=== PATIENT | male | born 1950 | race Caucasian/White ===

== ENCOUNTER → 2016-10-14 | Outpatient (CLI) | payer MEDICARE, MEDICAID ==
[~2016-10-14] MED LIST: ADV250INH INH; ALBU17IN INH; ALBU83IN INH; AMLO5TAB2 PO; ATOR40TA PO; CALC1TAB26 PO; FENO160T10 PO; GASTROGRAFIN SOLUTION 30ML (Q9963) As Ordered ONE; GLYB5TA PO; ISOVUE-370 76% 100ML VIAL (Q9967) As Ordered ONE; LORA10TA2 PO; LOSA100T36 PO; METO25TAB PO; NEXI40CA PO; OXYB5TA PO; POTA10CA PO; RANI150T PO; SODI325T9 PO; TRAD5TAB PO; VITMTA PO; ZETI10TA2 PO
--- NOTE | 2016-10-14 15:23 | REP ---
CT ABDOMEN AND PELVIS, 10/14/2016: Initially study performed of CT abdomen without contrast. Followed by CT abdomen and pelvis with IV and oral contrast and 2 minute delayed imaging of the abdomen. COMPARISON: CT abdomen and pelvis 02/17/2011 without contrast. TECHNIQUE: After drinking two cups of water each containing 10 mL Gastrografin in 290 mL water, 100 mL Isovue-370 mg/mL was given intravenously. Portal venous phase images were obtained of the abdomen and pelvis. Subsequently, two minute delayed images were obtained of abdomen. HISTORY: Hypocalcemia. Weight loss. FINDINGS: There is minimal fibroatelectatic changes in the left lung base. Visualized portions of the heart within normal limits. There is a 3.3 cm hiatal hernia with mildly thickened wall. There is mild diffuse fatty infiltration of liver. The spleen, pancreas are normal. There has been a prior cholecystectomy. Adrenal glands are normal. Kidneys are without hydronephrosis or obstructing ureteral calculi bilaterally. There are small bilateral renal cortical cysts. The right kidney is 9.9 cm in maximal length and the left kidney is 10.8 cm in length. The stomach is normal. Small bowel is without obstruction. The terminal ileum and appendix are normal. Abdominal aorta is of normal course and caliber. There are no pathologically enlarged retroperitoneal nodes. There is moderate bladder distention. Prostate is mildly enlarged with mild extrinsic impression upon inferior bladder. The colon is underdistended. There is no free air or ascites. IMPRESSION: 3.3 cm hiatal hernia. Mild diffuse fatty infiltration of liver. Bilateral renal cortical cysts. No hydronephrosis bilaterally. Moderate bladder distention. There is mild prostatic hypertrophy with mild extrinsic impression upon inferior bladder. Underdistended left colon. No free air or ascites. Unreviewed
--- NOTE | 2016-10-14 16:07 | REP ---
CT CHEST WITH CONTRAST, 10/14/2016 INDICATION: Weight loss and hypercalcemia, chronic kidney disease stage 3. COMPARISON: PA and lateral chest 08/25/2016. FINDINGS: The thoracic aorta is without aneurysm or dissection. There are moderate coronary artery calcifications within the left anterior descending coronary artery. The heart is of normal size. There are no pathologically enlarged mediastinal of hilar lymph nodes. Minimal dependant atelectasis versus scarring present in the lung bases bilaterally. There are no alveolar infiltrates or pleural effusions. 5.5 x 2 mm nodular density in the periphery of the right middle lobe is identified and is contiguous with the minor fissure. There is a 3.3 cm retrocardiac hiatal hernia. IMPRESSION: 1. No pathologically mediastinal or hilar adenopathy. 2. Moderate coronary artery calcifications and left anterior descending coronary artery. 3. 5.5 x 2 mm nodular opacity in the right middle lobe contiguous with the minor fissure likely scarring. Recommend followup CT chest in 3 months for reevaluation. MTDD
== END ==
LOC: M RAD 11:48
PROVIDERS: ATTEND Internal Medicine Nephrology
DX: N18.3 Chronic kidney disease, stage 3 (moderate) (principal); E83.52 Hypercalcemia; R63.4 Abnormal weight loss; K44.9 Diaphragmatic hernia without obstruction or gangrene; K76.0 Fatty (change of) liver, not elsewhere classified
CPT/HCPCS: 71260; 74177; Q9963; Q9967

== ENCOUNTER → 2017-04-06 | Outpatient (CLI) | payer MEDICARE, MEDICAID ==
[~2017-04-06] MED LIST changes: -ATOR40TA PO; +ATOR40TA75 PO; +DEXI60CA2 PO; -GASTROGRAFIN SOLUTION 30ML (Q9963) As Ordered ONE; -ISOVUE-370 76% 100ML VIAL (Q9967) As Ordered ONE; +METO25TA4 PO; -METO25TAB PO; -OXYB5TA PO; +OXYB5TAB10 PO; -ZETI10TA2 PO; +ZETI10TA30 PO
--- NOTE | 2017-04-06 21:53 | ECGEPIP ---
Stationary ECG Study [facility] Test Date: 2017-04-06 Pat Name: LILO CUNNINGHAM Department: Room: - Gender: M [employer]: Randy : 1950 Requested By: Gemma VALERIOP Order Number: [id number] Reading MD: Bryan Ballesteros Measurements Intervals [place] Rate: 73 P: 10 [place]: 144 QRS: -10 QRSD: 94 T: 10 QT: 381 QTc: 421 Interpretive Statements SINUS RHYTHM Within normal limits. Electronically Signed On 04-06-2017 21:52:52 EDT by Bryan Ballesteros
== END ==
LOC: M EKG 09:08
PROVIDERS: ATTEND Nurse Practitioner Family
DX: I10 Essential (primary) hypertension (principal); E11.9 Type 2 diabetes mellitus without complications

== ENCOUNTER 2017-06-08 12:33 | Day surgery (SDC) | payer MEDICARE, MEDICAID ==
[~2017-06-08] VITALS: Ht 160 cm; Wt 83.5 kg
[~2017-06-08 12:33] MED LIST changes: +ACETAMINOPHEN 325 MG TAB PO PRN; +BSS with VANC/TOB/EPI for EYE CASES IR ONE; +CYCLOPENTOLATE 2% OPHTH SOLN 2ML BTL XX ONE; +HEALON DUET (HEALON 10MG/ML 0.55ML & HEALON ENDOCOAT 30MG/ML 0.85ML) As Ordered ONE; +LIDOCAINE 1% SDV 5 ML VIAL As Ordered ONE; +LIDOCAINE 3.5 % 1ML OPHTH TOPICAL GEL OU ONE; +MOXIFLOXACIN IN BSS 0.25MG/0.25ML INTRACAMERAL INJ (OR EYE ONLY)(J2280) As Ordered ONE; +OFLOXACIN 0.3 % (OCUFLOX) OPTH SOL 5ML XX ONE; +PHENYLEPHRINE 2.5% OPHTH SOL 2ML XX ONE; +POVIDONE-IODINE 5% OPHTH PREP SOL 30ML As Ordered ONE; +PROPARACAINE 0.5% OPHTH SOL 15ML OS PRN; +TRIAMCINOLONE PRES FR 40 MG/ML 1ML(TRIESENCE)(OR EYE ONLY)(J3300 PER 1MG) As Ordered ONE; +TROPICAMIDE 1% OPHTH SOLN 2ML XX ONE
[2017-06-08] MEDS ORDERED: LR 1,000 ML IV ONE (12:45)
[2017-06-08] MEDS ORDERED: MIDAZOLAM INJ 2 MG/2 ML VIAL (J2250) As Ordered ONE (13:59)
[2017-06-08] MEDS ORDERED: fentaNYL 100 MCG/2 ML INJECTION (J3010) As Ordered ONE (13:59)
[2017-06-08] MEDS ORDERED: TRIMETHOBENZAMIDE 300 MG CAP PO PRN (14:45)
[2017-06-08] MEDS ORDERED: KETOROLAC 0.5% OPHTH SOLN OS ONE (14:45)
[2017-06-08] MEDS ORDERED: AcetaZOLAMIDE 500 MG ER CAP PO ONE (14:45)
[2017-06-08 15:00] VITALS: BP 155/72
== END 2017-06-08 15:11 | disposition home or self-care (01) ==
LOC: M SDC 12:33
PROVIDERS: ATTEND Ophthalmology
DX: H26.9 Unspecified cataract (principal); I10 Essential (primary) hypertension; E78.00 Pure hypercholesterolemia, unspecified; E07.9 Disorder of thyroid, unspecified; K44.9 Diaphragmatic hernia without obstruction or gangrene; K22.70 Barrett's esophagus without dysplasia; K21.9 Gastro-esophageal reflux disease without esophagitis; R29.898 Other symptoms and signs involving the musculoskeletal system; M15.0 Primary generalized (osteo)arthritis; E11.9 Type 2 diabetes mellitus without complications; M51.9 Unspecified thoracic, thoracolumbar and lumbosacral intervertebral disc disorder; R06.83 Snoring; N28.9 Disorder of kidney and ureter, unspecified; J45.909 Unspecified asthma, uncomplicated; F32.9 Major depressive disorder, single episode, unspecified; J44.9 Chronic obstructive pulmonary disease, unspecified; Z88.8 Allergy status to other drugs, medicaments and biological substances; Z79.899 Other long term (current) drug therapy; Z86.19 Personal history of other infectious and parasitic diseases
CPT/HCPCS: 66984; J2250; J2280; J3010; J3300; V2632

== ENCOUNTER 2017-11-07 12:12 | Emergency (ER) | payer MEDICARE, MEDICAID | END 2017-11-07 16:43 | disposition home or self-care (01) | LOC: M ED 12:12 | DX: J01.90 Acute sinusitis, unspecified (principal); B34.9 Viral infection, unspecified; J44.9 Chronic obstructive pulmonary disease, unspecified; I10 Essential (primary) hypertension; E78.5 Hyperlipidemia, unspecified; K22.70 Barrett's esophagus without dysplasia; Z79.899 Other long term (current) drug therapy; Z79.51 Long term (current) use of inhaled steroids; Z88.8 Allergy status to other drugs, medicaments and biological substances | CPT/HCPCS: 99283 ==

== ENCOUNTER → 2018-01-23 | Outpatient (CLI) | payer MEDICARE, MEDICAID | LOC: M EKG 10:54 | DX: Z01.812 Encounter for preprocedural laboratory examination (principal) | CPT/HCPCS: 93005 ==

== ENCOUNTER 2018-02-13 07:24 | Day surgery (SDC) | payer MEDICARE, MEDICAID ==
[2018-02-13] MEDS: MOXIFLOXACIN IN BSS 0.25MG/0.25ML INTRACAMERAL INJ (OR EYE ONLY)(J2280) As Ordered (06:57)
[~2018-02-13 07:24] MED LIST changes: +ACETAMINOPHEN 325 MG TAB PO; -ACETAMINOPHEN 325 MG TAB PO PRN; -ADV250INH INH; -ALBU17IN INH; -ALBU83IN INH; -AMLO5TAB2 PO; -ATOR40TA75 PO; -BSS with VANC/TOB/EPI for EYE CASES IR ONE; -CALC1TAB26 PO; -CYCLOPENTOLATE 2% OPHTH SOLN 2ML BTL XX ONE; -DEXI60CA2 PO; -FENO160T10 PO; -GLYB5TA PO; -HEALON DUET (HEALON 10MG/ML 0.55ML & HEALON ENDOCOAT 30MG/ML 0.85ML) As Ordered ONE; -LIDOCAINE 1% SDV 5 ML VIAL As Ordered ONE; -LIDOCAINE 3.5 % 1ML OPHTH TOPICAL GEL OU ONE; -LORA10TA2 PO; -LOSA100T36 PO; -METO25TA4 PO; -MOXIFLOXACIN IN BSS 0.25MG/0.25ML INTRACAMERAL INJ (OR EYE ONLY)(J2280) As Ordered ONE; -NEXI40CA PO; -OFLOXACIN 0.3 % (OCUFLOX) OPTH SOL 5ML XX ONE; -OXYB5TAB10 PO; -PHENYLEPHRINE 2.5% OPHTH SOL 2ML XX ONE; +PHENYLEPHRINE HCL 10 % OPHTH. SOL 5ML OD; -POTA10CA PO; -POVIDONE-IODINE 5% OPHTH PREP SOL 30ML As Ordered ONE; -PROPARACAINE 0.5% OPHTH SOL 15ML OS PRN; -RANI150T PO; -SODI325T9 PO; -TRAD5TAB PO; -TRIAMCINOLONE PRES FR 40 MG/ML 1ML(TRIESENCE)(OR EYE ONLY)(J3300 PER 1MG) As Ordered ONE; -TROPICAMIDE 1% OPHTH SOLN 2ML XX ONE; -VITMTA PO; -ZETI10TA30 PO
[2018-02-13] MEDS: TROPICAMIDE 1% OPHTH SOLN 2ML OD (07:59)
[2018-02-13] MEDS: OFLOXACIN 0.3 % (OCUFLOX) OPTH SOL 5ML OD (07:59)
[2018-02-13] MEDS: LIDOCAINE 3.5 % 1ML OPHTH TOPICAL GEL OU (07:59)
[2018-02-13] MEDS: PHENYLEPHRINE 2.5% OPHTH SOL 2ML OD (07:59)
[2018-02-13] MEDS: CYCLOPENTOLATE 2% OPHTH SOLN 2ML BTL OD (07:59)
[2018-02-13 08:01] LABS: BEDSIDE GLUCOSE 197 MG/DL (80-115)
[2018-02-13] MEDS ORDERED: MIDAZOLAM INJ 2 MG/2 ML VIAL (J2250) As Ordered (08:21)
[2018-02-13] MEDS ORDERED: fentaNYL 100 MCG/2 ML INJECTION (J3010) As Ordered (08:21)
[2018-02-13] MEDS: POVIDONE-IODINE 5% OPHTH PREP SOL 30ML As Ordered (08:30)
[2018-02-13] MEDS: LIDOCAINE 1% SDV 5 ML VIAL As Ordered (08:35)
[2018-02-13] MEDS: HEALON DUET (HEALON 10MG/ML 0.55ML & HEALON ENDOCOAT 30MG/ML 0.85ML) As Ordered (08:35)
[2018-02-13] MEDS: TRIAMCINOLONE PRES FR 40 MG/ML 1ML(TRIESENCE)(OR EYE ONLY)(J3300 PER 1MG) As Ordered (08:35)
[2018-02-13] MEDS: BSS with VANC/TOB/EPI for EYE CASES IR (08:35)
[2018-02-13] MEDS ORDERED: AcetaZOLAMIDE 500 MG ER CAP As Ordered (08:46)
[2018-02-13] MEDS: AcetaZOLAMIDE 500 MG ER CAP PO (08:54)
[2018-02-13] MEDS ORDERED: TRIMETHOBENZAMIDE 300 MG CAP PO (09:00)
== END 2018-02-13 09:25 | disposition home or self-care (01) ==
LOC: M SDC 07:24
DX: H25.9 Unspecified age-related cataract (principal); E11.9 Type 2 diabetes mellitus without complications; E78.4 Other hyperlipidemia; I10 Essential (primary) hypertension; E03.9 Hypothyroidism, unspecified; Z79.51 Long term (current) use of inhaled steroids; Z88.8 Allergy status to other drugs, medicaments and biological substances; J44.9 Chronic obstructive pulmonary disease, unspecified; F32.9 Major depressive disorder, single episode, unspecified; N18.3 Chronic kidney disease, stage 3 (moderate); Z87.891 Personal history of nicotine dependence; Z79.899 Other long term (current) drug therapy
CPT/HCPCS: 66984

== ENCOUNTER 2018-03-09 08:56 | Emergency (ER) | payer MEDICARE, OTHER, MEDICAID | END 2018-03-09 10:25 | disposition home or self-care (01) | LOC: M ED 08:56 | DX: S40.021A Contusion of right upper arm, initial encounter (principal); V09.9XXA Pedestrian injured in unspecified transport accident, initial encounter; Y92.410 Unspecified street and highway as the place of occurrence of the external cause; Y93.89 Activity, other specified; Y99.9 Unspecified external cause status; E11.9 Type 2 diabetes mellitus without complications; I10 Essential (primary) hypertension; E78.5 Hyperlipidemia, unspecified; J44.9 Chronic obstructive pulmonary disease, unspecified; M19.90 Unspecified osteoarthritis, unspecified site; M51.9 Unspecified thoracic, thoracolumbar and lumbosacral intervertebral disc disorder; K22.70 Barrett's esophagus without dysplasia; Z87.891 Personal history of nicotine dependence; Z79.899 Other long term (current) drug therapy; Z88.8 Allergy status to other drugs, medicaments and biological substances; Z88.6 Allergy status to analgesic agent | CPT/HCPCS: 73060 ==

== ENCOUNTER → 2018-10-30 | Outpatient (REF) | payer MEDICARE, MEDICAID ==
[~2018-10-30] MED LIST changes: -ACETAMINOPHEN 325 MG TAB PO; +ADV250INH INH; +ALBU17IN INH; +ALBU83IN INH; +AMLO5TAB6 PO; +ATOR40TA75 PO; +BYDU1INJ SC; +CALC1TAB26 PO; +DEXI60CA2 PO; +FENO160T10 PO; +FLON1SPR; +GLYB5TA PO; +KLOR10TA76 PO; +LORA-243 PO; +LOSA100T50 PO; +METO25TA4 PO; +MUCI600T31 PO; +NEXI40CA PO; +OXYB5TAB10 PO; -PHENYLEPHRINE HCL 10 % OPHTH. SOL 5ML OD; +RANI150T PO; +SODI325T9 PO; +TRAD5TAB PO; +VITMTA PO; +ZETI10TA30 PO
[2018-10-30 12:48] LABS: ALBUMIN 4.4 GM/DL (3.2-5.2); BILIRUBIN,TOTAL 0.3 MG/DL (0.2-1.0); CALCIUM LEVEL 9.5 MG/DL (8.8-10.2); CREATININE FOR GFR 1.64 MG/DL (0.70-1.30); GLOMERULAR FILTRATION RATE 44.8 (>49); HEMOGLOBIN A1c 8.3 %; POTASSIUM SERUM 4.5 MEQ/L (3.5-5.1); TOTAL PROTEIN 7.7 GM/DL (6.4-8.2)
== END ==
LOC: M LABDRAW1 10:11
PROVIDERS: ATTEND Nurse Practitioner Adult Health
DX: E11.9 Type 2 diabetes mellitus without complications (principal); I10 Essential (primary) hypertension

== ENCOUNTER → 2018-12-21 | Outpatient (CLI) | payer MEDICARE | LOC: M LAB 09:32 | PROVIDERS: ATTEND Internal Medicine Endocrinology, Diabetes & Metabolism | DX: M81.0 Age-related osteoporosis without current pathological fracture (principal); Z53.9 Procedure and treatment not carried out, unspecified reason ==

== ENCOUNTER → 2019-01-05 | Outpatient (CLI) | payer MEDICARE, MEDICAID ==
--- NOTE | 2019-01-09 11:09 | DEXA ---
AP SPINE L1 - L4 1.308 0.9 1.1 LT FEMUR TOTAL 0.862 -1.2 -1.0 LT NECK 0.785 -1.8 -1.0 RT FEMUR TOTAL 0.866 -1.1 -1.0 RT NECK 0.772 -1.9 -1.1 TOTAL BODY TOTAL OTHER COMMENTS: Normal bone densitometry of the spine. There is low bone density of the hips. FOLLOW-UP: Recommendation for the next bone density exam: 2 years. [place]TON
== END ==
LOC: M WHC 13:27
PROVIDERS: ATTEND Internal Medicine Endocrinology, Diabetes & Metabolism
DX: Z13.820 Encounter for screening for osteoporosis (principal); M85.88 Other specified disorders of bone density and structure, other site

== ENCOUNTER → 2019-01-31 | Outpatient (REF) | payer MEDICARE, MEDICAID ==
[2019-01-31 12:07] LABS: BASO % 0.5 % (0.0-1.0); EOS # 0.1 10^3/uL (0.0-0.50); EOS % 1.9 % (0.0-3.0); HEMATOCRIT 41.5 % (42.0-52.0); HEMOGLOBIN 13.4 g/dl (13.5-17.5); LYMPH # 1.4 10^3/uL (1.5-4.5); LYMPH % 24.8 % (24.0-44.0); MEAN CORPUSCULAR HEMOGLOBIN 32.1 pg (27.0-33.0); MEAN CORPUSCULAR HGB CONC 32.3 g/dl (32.0-36.5); MEAN CORPUSCULAR VOLUME 99.5 fl (80.0-96.0); MONO # 0.5 10^3/uL (0.0-0.8); MONO % 8.5 % (0.0-5.0); NEUTROPHILS # 3.7 10^3/uL (1.8-7.7); PLATELET COUNT, AUTOMATED 336 10^3/uL (150-450); RED BLOOD COUNT 4.17 10^6/uL (4.30-6.10); WHITE BLOOD COUNT 5.8 10^3/uL (4.0-10.0)
[2019-01-31 12:32] LABS: ALBUMIN 4.3 GM/DL (3.2-5.2); BILIRUBIN,TOTAL 0.5 MG/DL (0.2-1.0); CALCIUM LEVEL 9.4 MG/DL (8.8-10.2); CREATININE FOR GFR 1.72 MG/DL (0.70-1.30); GLOMERULAR FILTRATION RATE 42.4 (>49); POTASSIUM SERUM 4.5 MEQ/L (3.5-5.1); TOTAL PROTEIN 7.3 GM/DL (6.4-8.2)
[2019-01-31 15:55] LABS: HEMOGLOBIN A1c 7.2 %
== END ==
LOC: M LAB REF 11:40 → M LABDRAW1 11:40
PROVIDERS: ATTEND Nurse Practitioner Family
DX: I10 Essential (primary) hypertension (principal); E11.9 Type 2 diabetes mellitus without complications